=== PATIENT | female | born 2000 | race African-American/Black ===

== ENCOUNTER 2023-02-21 20:55 | Inpatient (IN) | payer MEDICAID ==
[~2023-02-21] VITALS: Ht 162.6 cm; Wt 50.6 kg
[2023-02-22] MEDS ORDERED: loperamide 2mg capsule PO PRN (01:10)
[2023-02-22] MEDS ORDERED: magnesium hydroxide 30ml (MOM) UD suspension PO PRN (01:10)
[2023-02-22] MEDS ORDERED: acetaminophen 325mg tablet PO PRN ×2 (01:10)
[2023-02-22] MEDS ORDERED: mag hydrox/Alum hydrox/simeth 30ml oral suspension PO PRN (01:10)
[2023-02-22] MEDS ORDERED: NO HOME MEDS (01:13)
[2023-02-22 02:21] VITALS: BP 123/82
--- NOTE | 2023-02-22 02:25 | NUR ---
Admit Note: Pt is a direct admit from [facility], Pt is DTO/DTS brought in by mom for manic episodes, erratic behavior (spray painting neighbors car, not sleeping/eating) and exhibiting risky behavior. Pt expresses wanting/needing help stating "I don't know what's wrong with me." Pt is cooperative with admit process, presents as anxious and "scared." Denies AH/VH/SI at this time.
[2023-02-22 07:30] VITALS: BP 113/50
[2023-02-22] MEDS: nicotine 21mg patch - 24 hr TD SCH (07:35)
[2023-02-22] MEDS ORDERED: hydrOXYzine 25 MG tablet PO PRN (15:35)
--- NOTE | 2023-02-22 17:29 | NUR ---
Nursing Progress Note: Problem: Pt is a direct admit from [facility], Pt is DTO/DTS brought in by mom for manic episodes, erratic behavior (spray painting neighbors car, not sleeping/eating) and exhibiting risky behavior. Pt expresses wanting/needing help stating "I don't know what's wrong with me." Per patient's mom odd behaviors began in 2018 however the last few weeks they have escalated. Interventions: 1:1 assessment, establishment of rapport, therapeutic conversation, active listening, medication administration/education/monitoring, behavior monitoring and intervention as needed; provided distraction, direction, positive reinforcement, and Q15 minute safety checks. Response: Received pt. awake walking in the hallway. Pt. requested laptop from locker to work on school project and play games. She was advised to speak to social workers today regarding this. Pt. appeared hypomanic and labile throughout the day; observed pacing hallways holding her stuffed animal, singing, thanking staff/apologizing multiple times, and walking/skipping quickly in hallway. Pt. fluctuates from upset & crying to happy & skipping in a short period of time. Pt. observed eating meals in the community room and napping intermittently. Pt. observed watching TV and interacting with peers. Performed 1:1 in TV room. Pt denies SI/HI and A/VH currently. When asked if she knows why she is here she began to cry and stated I did something wrong, I spray painted the neighbors garage and let the dog out, Im so sorry, Im so sorry, Im so sorry. Pt. endorsed that she heard voices commanding her to spray paint the neighbors garage and that she has never heard them previous to this event. Pt. very remorseful and stated she was very sad for having done this. Pt. states she feels sad & confused why her mother sent her here instead of letting her stay home. Pt. stated I just need help. Pt. participated in group today and showered. Pt. states that she would really like to go outside and feel the air, she became very upset looking out of her window stating just look at the trees, they are so free. This RN gave her PRN Atarax 25 mg and provided her with blank pages to draw on with good effect. Plan: Pt is in need of stabilization with psychiatric medication and monitoring in a safe and therapeutic environment.
[2023-02-22] MEDS: NICOTINE POLACRILEX 2 MG LOZENGE BC PRN (18:21)
[2023-02-22 20:37] VITALS: BP 124/67
[2023-02-22] MEDS: risperiDONE 0.5mg tablet PO SCH (20:39)
[2023-02-22] MEDS: traZODone 50mg tablet PO SCH (20:39)
[2023-02-22] MEDS: lithium carbonate 150mg capsule PO SCH (20:39)
--- NOTE | 2023-02-23 00:50 | NUR ---
Nursing Progress Note: [place] Problem: Pt is a direct admit from [facility], Pt is DTO/DTS brought in by mom for manic episodes, erratic behavior (spray painting neighbors car, not sleeping/eating) and exhibiting risky behavior. Pt expresses wanting/needing help stating "I don't know what's wrong with me." Per patient's mom odd behaviors began in 2018 however the last few weeks they have escalated. Interventions: 1:1 assessment, establishment of rapport, therapeutic conversation, active listening, medication administration/education/monitoring, behavior monitoring and intervention as needed; provided distraction, direction, positive reinforcement, and Q15 minute safety checks. Response: Received pt. in the rec room watching TV. Pt then requested shower. After shower she states she was going to take a nap however was observed in the rec room watching TV. She denies depression/anxiety and SI/HI. Pt took all HS medications, however she was slightly hesitant to take at first. Pt participated in snacks and went to bed shortly after. Plan: Pt is in need of stabilization with psychiatric medication and monitoring in a safe and therapeutic environment.
[2023-02-23 08:00] VITALS: BP 117/70
[2023-02-23] MEDS: nicotine 21mg patch - 24 hr TD SCH (08:38)
[2023-02-23 09:39] LABS: HEMOGLOBIN A1C 5.5 % (4.5-6.2)
[2023-02-23 09:40] LABS: CHOL/HDL RATIO 3.8 (0.00-4.99); CHOLESTEROL 164 MG/DL (0-200); HDL CHOLESTEROL 43 MG/DL (35-60); LDL CHOLESTEROL 101 MG/DL (50-100); TRIGLYCERIDES 29 MG/DL (20-135)
--- NOTE | 2023-02-23 18:01 | NUR ---
Nursing Progress Note: Problem: Pt is a direct admit from [facility], Pt is DTO/DTS brought in by mom for manic episodes, erratic behavior (spray painting neighbors car, not sleeping/eating) and exhibiting risky behavior. Pt expresses wanting/needing help stating "I don't know what's wrong with me." Per patient's mom odd behaviors began in 2018 however the last few weeks they have escalated. Interventions: 1:1 assessment, establishment of rapport, therapeutic conversation, active listening, medication administration/education/monitoring, behavior monitoring and intervention as needed; provided distraction, direction, positive reinforcement, and Q15 minute safety checks. Response: Received patient sleeping in bed at change of shift. Patient gets up and is walking fast around the unit, with poor eye contact. Patients father came in to visit her and at the end of the visit, they were asking to speak with provider. Staff brought them to RN. They were requesting to have patient discharged. I explained that it is better to have the provider see patient and then discuss a plan, as provider was unavailable at present. Patient has been calm this afternoon. Patient denies all mental health symptoms. Plan: Pt is in need of stabilization with psychiatric medication and monitoring in a safe and therapeutic environment
[2023-02-23 20:09] VITALS: BP 111/56
[2023-02-23] MEDS: risperiDONE 0.5mg tablet PO SCH (20:57)
[2023-02-23] MEDS: traZODone 50mg tablet PO SCH (20:57)
[2023-02-23] MEDS: lithium carbonate 150mg capsule PO SCH (20:58)
--- NOTE | 2023-02-23 23:18 | NUR ---
Nursing Progress Note: [place] Problem: Pt is a direct admit from [facility], Pt is DTO/DTS brought in by mom for manic episodes, erratic behavior (spray painting neighbors car, not sleeping/eating) and exhibiting risky behavior. Pt expresses wanting/needing help stating "I don't know what's wrong with me." Per patient's mom odd behaviors began in 2018 however the last few weeks they have escalated. Interventions: 1:1 assessment, establishment of rapport, therapeutic conversation, active listening, medication administration/education/monitoring, behavior monitoring and intervention as needed; provided distraction, direction, positive reinforcement, and Q15 minute safety checks. Response: Received patient walking in the hallway requesting clean scrubs. Pt c/o of upset stomach from nicotine patch (she thinks). Pt declined any PRNs. She states she feels good and ready to go home. She states her mood is calm and denies AH. She states she is tired and wants to lay down. Pt later observed in the hallway talking on the phone. She accepted all HS medications without issue and is currently sleeping with no needs. Plan: Pt is in need of stabilization with psychiatric medication and monitoring in a safe and therapeutic environment
[2023-02-24 08:05] VITALS: BP 122/71
--- NOTE | 2023-02-24 08:07 | NUR ---
Initial: Pt admit DX bipolar disorder w/ psychotic features per EMR. PO fluctuates ~67% avg regular diet meeting estimated needs not including snacks. LBM 02/22 per EMR. No nutrition interventions at this time. Will continue to follow. Rec: 1. continue regular diet; encourage PO 2. bowel care per rx 3. weekly wt Addendum: 02/24/23 at [address] Amended: Links added.
[2023-02-24] MEDS: nicotine 7mg patch - 24hr TD SCH (08:17)
--- NOTE | 2023-02-24 14:20 | NUR ---
Nursing Progress Note: [place] Problem: Pt is a direct admit from [facility], Pt is DTO/DTS brought in by mom for manic episodes, erratic behavior (spray painting neighbors car, not sleeping/eating) and exhibiting risky behavior. Pt expresses wanting/needing help stating "I don't know what's wrong with me." Per patient's mom odd behaviors began in 2018 however the last few weeks they have escalated. Interventions: 1:1 assessment, establishment of rapport, therapeutic conversation, active listening, medication administration/education/monitoring, behavior monitoring and intervention as needed; provided distraction, direction, positive reinforcement, and Q15 minute safety checks. Response: Pt was up for breakfast. Pt reported that the nicotine patch yesterday made her feel queasy. Pt had orders for a 21 mg nicotine patch. Pt reports that she only smokes 2-3 cigarettes today. Nicotine patch decreased to 7 mg. Pt has not c/o of any adverse effects from the 7 mg nicotine patch today. Pt is pleasant and cooperative. Pt denied depression, SI/HI/AH/VH. Pt does not appear to be responding to internal stimuli. Plan: Pt is in need of stabilization with psychiatric medication and monitoring in a safe and therapeutic environment
--- NOTE | 2023-02-24 15:14 | NUR ---
DISCHARGE PLAN Prince is discharging to her mother's home in [place] on 02/25/23. She has follow up scheduled with [facility]. Transport will pick her up at 9:30 AM. ANNMARIE Ryan
[2023-02-24 20:00] VITALS: BP 117/76
[2023-02-24] MEDS: NICOTINE POLACRILEX 2 MG LOZENGE BC PRN (20:27)
[2023-02-24] MEDS: traZODone 50mg tablet PO SCH (20:27)
[2023-02-24] MEDS: risperiDONE 0.5mg tablet PO SCH (20:28)
[2023-02-24] MEDS: lithium carbonate 150mg capsule PO SCH (20:28)
--- NOTE | 2023-02-25 04:47 | NUR ---
Nursing Progress Note: Problem: Pt is a direct admit from [facility], Pt is DTO/DTS brought in by mom for manic episodes, erratic behavior (spray painting neighbors car, not sleeping/eating) and exhibiting risky behavior. Pt expresses wanting/needing help stating "I don't know what's wrong with me." Per patient's mom odd behaviors began in 2018 however the last few weeks they have escalated. Interventions: 1:1 assessment, establishment of rapport, therapeutic conversation, active listening, medication administration/education/monitoring, behavior monitoring and intervention as needed; provided distraction, direction, positive reinforcement, and Q15 minute safety checks. Response: This patient was interviewed 1:1 following shift change. She is well oriented and cooperative. Patient socializes with other patients and is medication compliant. Patient denies S/I, H/I, or any hallucinations. Patients nicotine patch was removed and patient was supplied with nicotine lozenges. The patient tells this inspector automatic typewriter she will be discharged soon. The patient is medication compliant and she presents as feeling well. She wants to make sure she gets medications to go home on, she feels medications here have stabilized her condition greatly. Plan: Pt is in need of stabilization with psychiatric medication and monitoring in a safe and therapeutic environment
[2023-02-25] MEDS: nicotine 7mg patch - 24hr TD SCH (07:41)
[2023-02-25 07:52] VITALS: BP 115/54
[2023-02-25] MEDS ORDERED: RISP1TAB98 PO (09:02)
[2023-02-25] MEDS ORDERED: HYDR-3686 PO (09:02)
[2023-02-25] MEDS ORDERED: NICO-630 TD (09:02)
[2023-02-25] MEDS ORDERED: LIT300C PO (09:02)
[2023-02-25] MEDS ORDERED: NICO-907 BC (09:02)
[2023-02-25] MEDS ORDERED: TRAZ-251 PO (09:02)
--- NOTE | 2023-02-25 10:24 | NUR ---
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 Pt in bright mood and smiling, and in no physical or emotional distress. Pt is happy to be going home. Pt has been improving since admission and did not want nicotine replacement. Pt belongings inventoried and returned to her. Pt understands discharge instructions and f/u plan.
== END 2023-02-25 10:00 | disposition home or self-care (01) | DRG 753 ==
LOC: ADULT MH 20:55
PROVIDERS: ADMIT Psychiatry & Neurology Psychiatry; ATTEND Psychiatry & Neurology Psychiatry
DX: F31.9 Bipolar disorder, unspecified (principal); F17.290 Nicotine dependence, other tobacco product, uncomplicated; F41.9 Anxiety disorder, unspecified; Z79.899 Other long term (current) drug therapy; Z81.8 Family history of other mental and behavioral disorders
CPT/HCPCS: 36415; 80061; 83036; 87081; Q0177